=== PATIENT | female | born 1940 | race Caucasian/White ===

== ENCOUNTER → 2018-11-03 | Outpatient (CLI) | payer MEDICARE ==
[2018-11-03 11:30] LABS: HCT 40.1 % (34.0-46.0); HGB 13.2 gm/dL (11.4-16.0); MCH 29.8 pg (25.0-35.0); MCHC 32.9 g/dL (31.0-37.0); MCV 90.5 fL (80.0-100.0); Platelet Count 254 k/uL (150-450); RBC 4.43 m/uL (3.80-5.40); RDW 12.8 % (11.5-15.5)
[2018-11-03 11:42] LABS: Albumin 4.3 g/dL (3.5-5.0); Calcium 9.9 mg/dL (8.4-10.2); Potassium 3.9 mmol/L (3.5-5.1); Total Bilirubin 0.6 mg/dL (0.2-1.3); Total Protein 7.6 g/dL (6.3-8.2)
== END | disposition home or self-care (01) ==
LOC: LABPAT 11:03
PROVIDERS: ATTEND Surgery Plastic and Reconstructive Surgery
DX: Z01.812 Encounter for preprocedural laboratory examination (principal)
CPT/HCPCS: 36415; 80053; 85027

== ENCOUNTER 2018-11-09 10:56 | Inpatient (IN) | payer MEDICARE ==
--- NOTE | 2018-11-09 10:15 | P.GSHP ---
History of Present Illness H&P Date: 11/09/18 CHIEF COMPLAINT: Diverticulitis HISTORY OF PRESENT ILLNESS: The patient is a 78-year-old female who presents with history of diverticulitis. Lower endoscopy was offered for further evaluation and management. PAST MEDICAL HISTORY: Please see list. PAST SURGICAL HISTORY: Please see list. MEDICATIONS: Please see list. ALLERGIES: Please see list. SOCIAL HISTORY: No illicit drug use FAMILY HISTORY: No reports of Crohn disease or ulcerative colitis. REVIEW OF ORGAN SYSTEMS: CONSTITUTIONAL: No reports of fevers or chills. PHYSICAL EXAM: VITAL SIGNS: Stable GENERAL: Well-developed pleasant in no acute distress. HEENT: No scleral icterus. Extraocular movements grossly intact. Moist buccal mucosa. NECK: Supple without lymphadenopathy. CHEST: Unlabored respirations. Equal bilateral excursions. CARDIOVASCULAR: Regular rate and rhythm. Distal 2+ pulses. ABDOMEN: Soft, nontender, nondistended. MUSCULOSKELETAL: No clubbing, cyanosis, or edema. ASSESSMENT: 1. Diverticulitis PLAN: 1. Recommend proceeding with a lower endoscopy Past Medical History Past Medical History: Diabetes Mellitus, Eye Disorder, Hyperlipidemia, Hypertension, Musculoskeletal Disorder, Osteoarthritis (OA), Renal Disease, Skin Disorder, Thyroid Disorder Additional Past Medical History / Comment(s): On Insulin Pump. Macular Degeneration, Sl vertigo. Osteoporosis; collapsing Rt ankle r/t tendonitis. Seasonal Allergies W/ Sinus Problems - worse this year. "In Kidney Failure, functioning at 20%." Eczema. Varicose Veins. History of Any Multi-Drug Resistant Organisms: None Reported Past Surgical History: Appendectomy, Cholecystectomy, Heart Catheterization, Tubal Ligation Additional Past Surgical History / Comment(s): Luca cataract removal with implants. Exc Uterine Cyst. Colonoscopy. Past Anesthesia/Blood Transfusion Reactions: No Reported Reaction Smoking Status: Former smoker - Past Family History Father Brother(s) Family Medical History: Cancer Additional Family Medical History / Comment(s): Brother - kidney, hx Agent Sunburst exposure Medications and Allergies Home Medications Medication Instructions Recorded Confirmed Type Atenolol [Tenormin] 25 mg PO DAILY 05/27/14 11/02/18 History INSULIN ASPART (NovoLOG) [NovoLOG] 0 unit SQ CONTINUOUS 05/27/14 11/02/18 History Levothyroxine Sodium [Synthroid] 100 mcg PO DAILY 05/27/14 11/02/18 History Losartan-Hctz 50-12.5 mg [Hyzaar 1 each PO DAILY 05/27/14 11/02/18 History 50-12.5] Multivitamins, Thera [Multivitamin] 1 tab PO DAILY 05/27/14 11/02/18 History Raloxifene [Evista] 60 mg PO DAILY 05/27/14 11/02/18 History Calcium Carbonate/Vitamin D3 1 each PO DAILY 11/02/18 11/02/18 History [Calcium 600-Vit D3 400 Tablet] Cbd Oil 1 drop PO HS 11/02/18 11/02/18 History Cholecalciferol [Vitamin D3 (25 3,000 unit PO DAILY 11/02/18 11/02/18 History Mcg = 1000 Iu)] Loratadine [Claritin] 10 mg PO HS 11/02/18 11/02/18 History Pravastatin Sodium [Pravachol] 20 mg PO HS 11/02/18 11/02/18 History Vits A,C,E/Lutein/Minerals 1 each PO DAILY 11/02/18 11/02/18 History [Ocuvite with Lutein Tablet] Allergies Allergy/AdvReac Type Severity Reaction Status Date / Time latex Allergy blistering Verified 11/02/18 12:49 Penicillins Allergy Swelling Verified 11/02/18 12:49 Sulfa (Sulfonamide Allergy Itching Verified 11/02/18 12:49 Antibiotics) Tetanus Vaccines and Toxoid Allergy Unknown Verified 11/02/18 12:49 [Tetanus Vaccines & Toxoid] Childhood NSAIDS (Non-Steroidal AdvReac AVOIDS D/T Verified 11/02/18 14:14 Anti-Inflamma KIDNEY FAILURE
[2018-11-09 11:27] LABS: Glucose,Whole Blood 147 mg/dL (75-99)
[2018-11-09] MEDS: LACTATED RINGERS 1,000 ML IV SCH (11:28)
[2018-11-09] MEDS ORDERED: LIDOCAINE 1% 20 ML VIAL (10MG/ML) FOR IV START SQ ONE (11:29)
[2018-11-09] MEDS ORDERED: ATENOLOL 25 MG TAB PO STA (11:36)
[2018-11-09] MEDS ORDERED: PROPOFOL 10 MG/ML 20 ML VIAL IV ONE (11:40)
[2018-11-09] MEDS ORDERED: LIDOCAINE 1% INJ 10MG/ML (20 ML MDV) ONE (11:40)
--- NOTE | 2018-11-09 12:02 | P.HPADDEND ---
H&P Addendum H&P Addendum Date: 11/09/18 Patient presented with history of diverticulitis. She had prior history of stricture of the sigmoid colon. Attempted colonoscopy now confirms large bowel obstruction which is now severe sigmoid obstruction at 20 cm from the anal verge. Recommend proceeding with sigmoid colectomy. Patient will be admitted for robotic sigmoid colectomy secondary to complicated diverticulitis.
[2018-11-09] MEDS ORDERED: Antibiotics per Pharmacy 1 EACH MISC MISCELLANE PRN (12:06)
--- NOTE | 2018-11-09 12:06 | P.PCN ---
Date of Procedure: 11/09/18 Description of Procedure: PREOPERATIVE DIAGNOSIS: Sigmoid diverticulitis POSTOPERATIVE DIAGNOSIS: Sigmoid diverticulitis with large bowel obstruction Sigmoid stricture OPERATION: Colonoscopy to the sigmoid colon converted to flexible sigmoidoscopy SURGEON: Arina Alonzo MD. ANESTHESIA: MAC. INDICATIONS: The patient is a 78-year-old female who presented with history of diverticulitis. She presents for further diagnostic assessment. Benefits and risks were described and informed consent was obtained. DESCRIPTION OF PROCEDURE: The patient had undergone Suprep. She had been brought into the operating room and laid in the left lateral decubitus position. After adequate intravenous sedation, the rectum was examined with 2% lidocaine jelly. External hemorrhoids were encountered. The rectal tone was within normal limits. No lesions were palpated in the rectal vault. An Olympus colonoscope was advanced along the rectum to sigmoid colon where a tight sigmoid stricture was found at 20 cm from the anal verge. The scope was passed to 20 cm from the anal verge. No evidence of polyps were identified at the sigmoid colon. As the patient posed high risk for perforation with persistence of the procedure, the procedure was discontinued. The colon was desufflated. The patient had tolerated the procedure well. Withdrawal time was over 6 minutes. FINDINGS: [place] preparation quality scale 2 (1-5) Sigmoid colon stricture at 20 cm from the anal verge External prolapsed hemorrhoids. Scope advanced to sigmoid colon at 20 cm. No arteriovenous malformations at sigmoid colon No adenomatous polyps at sigmoid colon No focal colitis at sigmoid colon RECOMMENDATIONS: She has symptomatic large bowel obstruction of sigmoidal stricture from diverticular disease, recommend sigmoid resection
[2018-11-09] MEDS ORDERED: SODIUM CHLORIDE 0.9% 1,000 ML IV SCH (12:15)
[2018-11-09 12:29] LABS: Glucose,Whole Blood 151 mg/dL (75-99)
[2018-11-09] MEDS ORDERED: LOSARTAN-HCTZ 50-12.5 MG 1 EACH TAB PO SCH (12:45)
[2018-11-09] MEDS: metroNIDAZOLE 500 MG TAB PO SCH ×3 (13:09→23:07)
[2018-11-09] MEDS: NEOMYCIN 500 MG TAB PO SCH ×3 (13:09→23:07)
[2018-11-09 13:11] LABS: Calcium 9.6 mg/dL (8.4-10.2); Potassium 2.9 mmol/L (3.5-5.1); Total Bilirubin 0.5 mg/dL (0.2-1.3); Total Protein 6.8 g/dL (6.3-8.2)
[2018-11-09 13:21] LABS: Basophils % (A) 1 %; Eosinophils # (A) 0.1 k/uL (0-0.7); Eosinophils % (A) 2 %; HCT 36.3 % (34.0-46.0); HGB 12.4 gm/dL (11.4-16.0); Lymphocytes # (A) 0.8 k/uL (1.0-4.8); Lymphocytes % (A) 18 %; MCH 30.1 pg (25.0-35.0); MCHC 34.1 g/dL (31.0-37.0); MCV 88.3 fL (80.0-100.0); Mean Platelet Volume 10.3; Monocytes # (A) 0.4 k/uL (0-1.0); Monocytes % (A) 8 %; Neutrophils # (A) 3.1 k/uL (1.3-7.7); Neutrophils % (A) 69 %; Platelet Count 194 k/uL (150-450); RBC 4.11 m/uL (3.80-5.40); RDW 12.5 % (11.5-15.5); WBC 4.5 k/uL (3.8-10.6)
[2018-11-09] MEDS: SCOPOLAMINE 1.5MG/72HR PATCH TRANSDERM SCH (13:52)
[2018-11-09] MEDS ORDERED: POLYETHYLENE GLYCOL LYTES SOLN 4,000 ML SOLN.RECON PO ONE (14:00)
[2018-11-09] MEDS ORDERED: POTASSIUM CHLORIDE ER 20 MEQ TAB.ER PO STA (14:06)
[2018-11-09] MEDS ORDERED: SODIUM CHLORIDE 0.9% 1,000 ML IV ONE ×2 (14:07→14:28)
[2018-11-09 16:52] LABS: Glucose,Whole Blood 126 mg/dL (75-99)
[2018-11-09] MEDS: INSULIN ASPART (NovoLOG) 100 UNIT/ML VIAL SQ SCH ×2 (17:03→23:09)
--- NOTE | 2018-11-09 17:14 | P.PN ---
Subjective Progress Note Date: 11/09/18 CHIEF COMPLAINT: History of diverticulosis. HISTORY OF PRESENT ILLNESS: Qian Gaspar is a 78-year-old female who reports severe diverticulosis with recurring symptoms and left lower quadrant abdominal pain. She is also essentially a type 1 diabetic. She also comes in with severe chronic renal insufficiency. She has completed cardiac risk assessment with her provider. She reports doing fairly well however she now has severe constipation and changes of her bowel movements. An attempted colonoscopy was limited to the sigmoid colon as severe diverticulosis including stricture was found hence her admission PAST MEDICAL HISTORY: Please see list. PAST SURGICAL HISTORY: Please see list. MEDICATIONS: Please see list. ALLERGIES: Please see list. SOCIAL HISTORY: No illicit drug use FAMILY HISTORY: No reports of Crohn disease or ulcerative colitis. REVIEW OF ORGAN SYSTEMS: Additionally reports: Endocrine: History of diabetes type 2. Hypothyroidism. GI: Changes in bowel habits with diverticulitis. CONSTITUTIONAL: No fevers or chills. HEENT: Denies any trouble with vision, hearing or nosebleeds. No difficulty swallowing. LYMPHATIC: The patient denies any lumps and bumps around the neck. RESPIRATORY: Denies pneumonia. Denies any troubles with breathing or dyspnea on exertion. CARDIOVASCULAR: Denies any chest pain, palpitations, or recent heart attacks. Has hyperlipidemia. GENITOURINARY: Denies any blood in urine or increased urinary frequency. MUSCULOSKELETAL: Has back pain, stiffness or joint arthritis. NEUROLOGIC: Denies any numbness or tingling along the distal extremities. No seizure disorders or headaches. PSYCHIATRIC: Denies any depression or suicidal ideation. HEMATOLOGIC: Denies any abnormal bleeding or bruising. BREASTS: Denies any breast lumps, pain or nipple discharge. SKIN: No current skin cancer. No rash. PHYSICAL EXAM: VITAL SIGNS: Stable Patient is a 78-year-old female. Abdomen: Without any incisional hernias or scarring above the umbilicus. Soft. Non-tender. Nondistended. CONSTITUTIONAL: Well developed and in no acute distress. Vitals reviewed. EYES: Conjuctivae without sclera icterus. Pupils are equally round and reactive to light. Extraocular movements grossly intact. HEAD, EARS, NOSE, THROAT: Moist buccal mucosa. Head is atraumatic, normocephalic. Hears conversational speech. No nasal drainage. NECK: Supple. No JV distention. No thyroidomegaly. RESPIRATORY: Non-labored respirations and equal bilateral excursions. No gross w heezes. CARDIOVASCULAR: Regular rate and rhythm. Extremities without moderate edema. Palpable 2+ radial pulses. LYMPH: No neck lymphadenopathy. No axillary lymphadenopathy. MUSCULOSKELETAL: Nail and fingers with good capillary refill. SKIN: Warm and well perfused with good skin turgor. NEUROLOGIC: Cranial nerves I through XII grossly intact. Sensation upper and extremities intact. No focal or lateralizing signs. PSYCH: Appropriate affect. Alert and oriented to person, place and time. Displays appropriate insight. ASSESSMENT: 1. History of severe diverticulosis. 2. Type 1 diabetes. 3. Chronic renal insufficiency. PLAN: 1. Benefits and risks of surgical robotic sigmoid resection was reviewed in detail. Robotic-assisted approach was also described. 2. Enhanced colon recovery program. 3. DVT prophylaxis. 4. Antibiotic prophylaxis. 5. Inpatient hospitalization greater than 2 nights. 6. She has completed cardiac risk assessment including cardiac catheterization this year with Dr. Tripathi and she was cleared for surgery. 7. Robotic sigmoid resection was discussed in detail including risk for colostomy bag. 8. She is high for perioperative complications was baseline type 1 diabetes including chronic renal insufficiency ADDENDUM: Electrolytes demonstrate worsening renal function including elevated BUN and severe hypokalemia. We'll treat hypokalemia with oral potassium and switch of IV fluids to normal saline with potassium. Additionally consultation to nephrology for acute on chronic renal failure. Since her prep was incomplete, we'll continue with prep for lower anterior resection, sigmoid colectomy tomorrow. We'll repeat electrolytes in the morning with correction. Objective - Vital Signs Vital signs: Vital Signs Temp 97.2 F L 11/09/18 11:24 Pulse 56 L 11/09/18 13:16 Resp 18 11/09/18 13:16 BP 138/71 11/09/18 13:16 Pulse Ox 97 11/09/18 12:22 Intake & Output 11/08/18 11/09/18 11/09/18 18:59 06:59 18:59 Intake Total 500 Balance 500 Intake: IV 500 Other: # Bowel Movements 4 - Labs CBC & Chem 7: 11/09/18 12:45 11/09/18 12:45 Labs: Abnormal Lab Results - Last 24 Hours (Table) 11/09/18 11/09/18 11/09/18 Range/Units 11:26 12:28 12:45 Lymphocytes # 0.8 L (1.0-4.8) k/uL Sodium (137-145) mmol/L Potassium (3.5-5.1) mmol/L Chloride (98-107) mmol/L BUN (7-17) mg/dL Creatinine (0.52-1.04) mg/dL Glucose (74-99) mg/dL POC Glucose (mg/dL) 147 H 151 H (75-99) mg/dL AST (14-36) U/L 11/09/18 11/09/18 Range/Units 12:45 16:47 Lymphocytes # (1.0-4.8) k/uL Sodium 131 L (137-145) mmol/L Potassium 2.9 L (3.5-5.1) mmol/L Chloride 93 L (98-107) mmol/L BUN 59 H (7-17) mg/dL Creatinine 2.15 H (0.52-1.04) mg/dL Glucose 158 H (74-99) mg/dL POC Glucose (mg/dL) 126 H (75-99) mg/dL AST 41 H (14-36) U/L Assessment and Plan (1) Large bowel obstruction Current Visit: Yes Status: Acute Code(s): K56.609 - UNSP INTESTNL OBST, UNSP TO PARTIAL VERSUS COMPLETE OBST SNOMED Code(s): 447235036 (2) Diverticulitis of sigmoid colon Current Visit: Yes Status: Acute Code(s): K57.32 - DVTRCLI OF LG INT W/O PERFORATION OR ABSCESS W/O BLEEDING SNOMED Code(s): 385898589 (3) Diabetes type 1, controlled Current Visit: Yes Status: Acute Code(s): E10.9 - TYPE 1 DIABETES MELLITUS WITHOUT COMPLICATIONS SNOMED Code(s): 19859067 (4) Diabetic nephropathy associated with type 1 diabetes mellitus Current Visit: Yes Status: Acute Code(s): E10.21 - TYPE 1 DIABETES MELLITUS WITH DIABETIC NEPHROPATHY SNOMED Code(s): 046971808 (5) Stage 4 chronic kidney disease due to diabetes mellitus Current Visit: Yes Status: Acute Code(s): E11.22 - TYPE 2 DIABETES MELLITUS W DIABETIC CHRONIC KIDNEY DISEASE; N18.4 - CHRONIC KIDNEY DISEASE, STAGE 4 (SEVERE) SNOMED Code(s): 517212012 (6) Morbid obesity due to excess calories Current Visit: Yes Status: Acute Code(s): E66.01 - MORBID (SEVERE) OBESITY DUE TO EXCESS CALORIES SNOMED Code(s): 171149136 (7) Hypertensive heart disease Current Visit: Yes Status: Acute Code(s): I11.9 - HYPERTENSIVE HEART DISEASE WITHOUT HEART FAILURE SNOMED Code(s): 84112902 (8) BMI 35.0-35.9,adult Current Visit: Yes Status: Acute Code(s): Z68.35 - BODY MASS INDEX (BMI) 35.0-35.9, ADULT SNOMED Code(s): 154394584 (9) Hypokalemia Current Visit: Yes Status: Acute Code(s): E87.6 - HYPOKALEMIA SNOMED Code(s): 34120547
[2018-11-09] MEDS: 0.9% NACL WITH KCL 40 MEQ/L 1,000 ML IV SCH ×2 (20:18→23:09)
[2018-11-09] MEDS: LORATADINE 10 MG TAB PO SCH (20:19)
[2018-11-09 20:31] LABS: Glucose,Whole Blood 161 mg/dL (75-99)
[2018-11-09] MEDS ORDERED: TEMAZEPAM 15 MG CAP PO ONE (21:00)
[2018-11-10] MEDS: LACTATED RINGERS 1,000 ML IV SCH ×2 (04:50→10:40)
[2018-11-10] MEDS ORDERED: CLINDAMYCIN 900 MG in DEXTROSE 5% IN WATER 50 ML IVPB ONE ×2 (05:00)
[2018-11-10] MEDS ORDERED: GENTAMICIN 380 MG in SODIUM CHLORIDE 0.9% 100 ML IVPB ONE (05:00)
[2018-11-10 06:00] LABS: Glucose,Whole Blood 78 mg/dL (75-99)
[2018-11-10] MEDS: metroNIDAZOLE-NS PMX 500 MG in SALINE 1 100ML.BAG IVPB SCH ×4 (06:00→23:29)
[2018-11-10] MEDS: INSULIN ASPART (NovoLOG) 100 UNIT/ML VIAL SQ SCH (06:03)
[2018-11-10 07:13] LABS: Glucose,Whole Blood 71 mg/dL (75-99)
[2018-11-10] MEDS: ATENOLOL 25 MG TAB PO SCH (07:51)
[2018-11-10 08:26] LABS: Basophils % (A) 0 %; Eosinophils # (A) 0.1 k/uL (0-0.7); Eosinophils % (A) 1 %; HCT 34.3 % (34.0-46.0); HGB 11.6 gm/dL (11.4-16.0); Lymphocytes # (A) 0.7 k/uL (1.0-4.8); Lymphocytes % (A) 12 %; MCH 30.1 pg (25.0-35.0); MCHC 33.9 g/dL (31.0-37.0); Mean Platelet Volume 9.3; Monocytes # (A) 0.4 k/uL (0-1.0); Monocytes % (A) 7 %; Neutrophils # (A) 4.5 k/uL (1.3-7.7); Neutrophils % (A) 78 %; Platelet Count 189 k/uL (150-450); RBC 3.85 m/uL (3.80-5.40); RDW 12.8 % (11.5-15.5); WBC 5.8 k/uL (3.8-10.6)
[2018-11-10 08:40] LABS: Glucose,Whole Blood 86 mg/dL (75-99)
[2018-11-10 08:42] LABS: Albumin 3.4 g/dL (3.5-5.0); Calcium 8.6 mg/dL (8.4-10.2); Magnesium 1.9 mg/dL (1.6-2.3); Phosphorus 2.3 mg/dL (2.5-4.5); Potassium 3.6 mmol/L (3.5-5.1); Total Bilirubin 0.4 mg/dL (0.2-1.3); Total Protein 6.2 g/dL (6.3-8.2)
[2018-11-10] MEDS ORDERED: D5-0.9% NACL WITH KCL 40 MEQ/L 1,000 ML IV SCH (09:00)
[2018-11-10] MEDS ORDERED: ALVIMOPAN 12 MG CAPSULE PO ONE (10:00)
[2018-11-10] MEDS ORDERED: HEPARIN SODIUM,PORCINE 5,000 UNIT/ML 1 ML VIAL SQ ONE (10:00)
[2018-11-10] MEDS ORDERED: ACETAMINOPHEN TAB 500 MG TAB PO ONE (10:00)
[2018-11-10] MEDS ORDERED: IV FLUID CONTINUATION 850 ML IV ONE (10:15)
[2018-11-10] MEDS ORDERED: ATENOLOL 25 MG TAB PO ONE (10:43)
[2018-11-10 10:45] LABS: Glucose,Whole Blood 101 mg/dL (75-99)
[2018-11-10] MEDS ORDERED: MIDAZOLAM (PF) 2 MG/2 ML VIAL IVP ONE (10:55)
[2018-11-10] MEDS ORDERED: fentaNYL (PF) 50 MCG/ML 2 ML AMP IVP ONE (10:55)
--- NOTE | 2018-11-10 10:57 | CONS ---
CONSULTATION REASON FOR CONSULTATION: Advice regarding hypertension, hyperlipidemia, and diabetes mellitus and other medical issues requested by Dr. Alonzo. HISTORY OF PRESENT ILLNESS: This 78-year-old woman with a past medical history of diabetes, hypertension, hyperlipidemia, history of DJD, history of appendectomy, cholecystectomy, history of renal failure being followed by Dr. Sanchez in the outpatient setting was complaining of abdominal pain. Dr. Alonzo evaluated the patient. The patient was diagnosed with severe diverticulosis, previous history of diverticulitis and sigmoid stricture and colonoscopy. The patient is scheduled for sigmoid colectomy. The previous cardiac risk assessment has been done. The patient also had renal failure. The creatinine is stable, it is 2.15 at this time. There is no history of fever, rigors. No history of headache, loss of consciousness, chest pain, palpitations, hematochezia or melena at this time. PAST MEDICAL HISTORY: History of diabetes, hypertension, hyperlipidemia, history of nicotine dependence, history of hypothyroidism, history of insulin pump. MEDICATIONS: The medications prior, home medications are: 1. Ocuvite 1 tablet p.o. daily. 2. Evista 60 mg p.o. daily. 3. Pravachol 20 mg q.h.s. 4. Multivitamins 1 p.o. daily. 5. Hyzaar 1 p.o. daily. 6. Claritin 10 mg q.h.s. 7. Synthroid 100 mcg p.o. daily. 8. Insulin pump. 9. Cholecalciferol 3000 daily. 10.CBD oil 1 p.o. q.h.s. 11.Vitamin D3 one tablet p.o. daily. 12.Tenormin 25 mg p.o. daily. ALLERGIES: Allergies are LATEX, PENICILLIN, SULFA, TETANUS, NSAIDS. FAMILY HISTORY: History of cancer, Agent Canones exposure. SOCIAL HISTORY: Previous history of smoking. Occasional alcohol intake. REVIEW OF SYSTEMS: ENT: No diminished hearing or diminished vision. CARDIOVASCULAR SYSTEM: No angina. RESPIRATORY SYSTEM: No cough, hemoptysis. GI: As mentioned earlier. : As mentioned earlier. NERVOUS SYSTEM: No numbness or weakness. ALLERGY/IMMUNOLOGY: No asthma or hayfever. MUSCULOSKELETAL: As mentioned earlier. HEMATOLOGY/ONCOLOGY: No history anemia. ENDOCRINE: Hypothyroidism and diabetes mellitus. CONSTITUTIONAL: As mentioned earlier. DERMATOLOGY: Negative. RHEUMATOLOGY: Negative. PSYCHIATRIC: As mentioned earlier. PHYSICAL EXAMINATION: Patient is alert, oriented x3. The pulse is 65, blood pressure 165/70, respirations 16, temperature is 97.5, pulse ox 96% on room air. HEENT: Conjunctivae are normal. Oral mucosa moist. NECK is no jugular venous distention. No carotid bruit. No lymph node enlargement. CARDIOVASCULAR: S1, S2 muffled. No S3, no S4. RESPIRATORY: Breath sounds diminished at the bases. No rhonchi, no crackles. ABDOMEN: Soft, nontender. No mass palpable. LEGS: No edema, no swelling. NERVOUS SYSTEM: Higher function as mentioned earlier. Moves all 4 limbs. No focal motor or sensory deficit. LYMPHATICS: No lymphadenopathy of the neck, axillae or groin. JOINTS: No active deforming arthropathy. LABS: Labs are: WBC 4.5, hemoglobin 12.4, sodium 131, potassium 2.9 and creatinine is 2.15. Glucose 158. ASSESSMENT: 1. Sigmoid diverticulosis and sigmoid stricture for sigmoid colectomy. 2. Diabetes mellitus type 2, on insulin pump. 3. Chronic renal failure, possibly diabetic nephropathy. 4. Hypokalemia. 5. Hyponatremia. 6. Hypertension. 7. Hyperlipidemia. 8. History of degenerative joint disease. 9. History of hypothyroidism. 10.Insulin pump. 11.History of macular degeneration. 12.History of cholecystectomy. 13.Remote history of nicotine dependence. 14.Obesity with body mass index of 35.3. 15.FULL CODE. RECOMMENDATIONS AND DISCUSSION: This 78-year-old woman who presented for surgery is currently stable at this time. I recommend monitor sodium and potassium closely, potassium supplementation. Monitor creatinine closely. Otherwise, I would also recommend use either intravenous insulin drip or combination of long-acting and short-acting insulins for diabetes control until the patient is stabilized on a diet post surgery. Otherwise will follow the patient closely and for now, insulin scale may be continued. We will follow the patient closely with you and patient may be asked to follow with Dr. Sanchez closely after discharge. Thank you Dr. Alonzo for letting us participate in the care of this patient. MMODL / IJN: [id number] /
--- NOTE | 2018-11-10 11:05 | P.HPADDEND ---
H&P Addendum H&P Addendum Date: 11/10/18 Potassium corrected. Creatinine improved after IV fluid hydration despite prep. Benefits and risks of surgery also described the possibility of colostomy creation. Patient wished to proceed with surgery.
[2018-11-10] MEDS ORDERED: MIDAZOLAM 2 MG/2 ML VIAL ONE (11:43)
[2018-11-10] MEDS ORDERED: PROPOFOL 10 MG/ML 20 ML VIAL IV ONE (11:43)
[2018-11-10] MEDS ORDERED: ROCURONIUM BROMIDE 10 MG/ML 10 ML VIAL IV ONE (11:43)
[2018-11-10] MEDS ORDERED: LIDOCAINE 1% INJ 10MG/ML (20 ML MDV) ONE (11:43)
[2018-11-10] MEDS ORDERED: HEPARIN SODIUM,PORCINE 5,000 UNIT/ML 1 ML VIAL ONE (11:43)
[2018-11-10] MEDS ORDERED: fentaNYL (PF) 50 MCG/ML 2 ML AMP ONE (11:43)
[2018-11-10] MEDS ORDERED: PHENYLEPHRINE-0.9% NACL SYG 1 MG/10 ML SYRINGE ONE (11:43)
[2018-11-10] MEDS ORDERED: ONDANSETRON 4 MG/2 ML VIAL ONE (11:43)
[2018-11-10] MEDS ORDERED: NEOSTIGMINE 1 MG/ML 10 ML VIAL ONE (11:43)
[2018-11-10] MEDS ORDERED: GLYCOPYRROLATE 0.2 MG/ML 2 ML VIAL ONE (11:43)
[2018-11-10] MEDS ORDERED: INSULIN REGULAR 100 UNIT in SODIUM CHLORIDE 0.9% 100 ML IV SCH (12:00)
[2018-11-10] MEDS ORDERED: NALOXONE 0.4 MG/ML 1 ML VIAL IV PRN (12:24)
[2018-11-10] MEDS ORDERED: BUPIVACAIN-EPI 0.25%-1:200,000 30 ML VIAL SQ ONE (12:33)
[2018-11-10 13:24] LABS: Glucose,Whole Blood 160 mg/dL (75-99)
[2018-11-10 14:27] LABS: Glucose,Whole Blood 203 mg/dL (75-99)
[2018-11-10] MEDS ORDERED: LACTATED RINGERS 1,000 ML IV ONE (14:58)
[2018-11-10 15:32] LABS: Glucose,Whole Blood 194 mg/dL (75-99)
[2018-11-10 16:44] LABS: Glucose,Whole Blood 198 mg/dL (75-99)
--- NOTE | 2018-11-10 17:05 | P.OP ---
Date of Procedure: 11/10/18 Preoperative Diagnosis: Large bowel obstruction, sigmoid diverticulitis, sigmoid stricture, type 1 diabetes, chronic renal insufficiency stage III, hypertensive heart disease, morbid obesity BMI 35.3 Postoperative Diagnosis: Same Procedure(s) Performed: Robotic low anterior resection, colonoscopy Anesthesia: GETA, epidural Surgeon: Arina Alonzo Estimated Blood Loss (ml): 30 Pathology: other (Sigmoid colon) Condition: stable Disposition: floor Operative Findings: 1. Highly redundant sigmoid colon 2. Colon stricture at 20 cm from the anal verge resected for low anterior resection 3. Redundant sigmoid colon mesentery 4. EEA anastomosis end-to-end 25 mm 5. Staple loads 6: 60 mm x 2 black loads, 60 mm 4 Green loads 6. Negative leak test 7. Intraoperative films also reviewed in clinic and findings. 8. Resection of 25 cm or 11 inches of sigmoid colon
--- NOTE | 2018-11-10 17:07 | P.PN ---
Progress Note - Text Progress Note Date: 11/10/18 Discussed with patient and family that she is high risk with type I diabetes type 2, hypertensive heart disease, chronic renal insufficiency stage III, morbid obesity BMI 35.3. Anticipated hospitalization at least 3-5 days. Close monitoring of renal function including continuing antibiotics for contaminated case were reviewed.
[2018-11-10] MEDS ORDERED: SODIUM CHLORIDE 0.9% 1,000 ML IV SCH (17:15)
[2018-11-10 17:34] LABS: Glucose,Whole Blood 204 mg/dL (75-99)
[2018-11-10 18:37] LABS: Glucose,Whole Blood 203 mg/dL (75-99)
[2018-11-10] MEDS: CLINDAMYCIN 600 MG in DEXTROSE 5% IN WATER 50 ML IVPB SCH ×2 (19:32)
[2018-11-10] MEDS: HEPARIN SODIUM,PORCINE 5,000 UNIT/ML 1 ML VIAL SQ SCH (20:08)
[2018-11-10] MEDS: LORATADINE 10 MG TAB PO SCH (20:08)
[2018-11-10] MEDS: 0.9% NACL WITH KCL 40 MEQ/L 1,000 ML IV SCH (20:11)
[2018-11-10 20:36] LABS: Glucose,Whole Blood 163 mg/dL (75-99)
[2018-11-10 22:40] LABS: Glucose,Whole Blood 131 mg/dL (75-99)
[2018-11-11 00:44] LABS: Glucose,Whole Blood 112 mg/dL (75-99)
[2018-11-11] MEDS: CLINDAMYCIN 600 MG in DEXTROSE 5% IN WATER 50 ML IVPB SCH ×6 (01:35→17:42)
[2018-11-11 01:40] LABS: Glucose,Whole Blood 133 mg/dL (75-99)
[2018-11-11] MEDS: 0.9% NACL WITH KCL 40 MEQ/L 1,000 ML IV SCH (02:20)
[2018-11-11] MEDS: LACTATED RINGERS 1,000 ML IV SCH (02:21)
[2018-11-11 02:47] LABS: Glucose,Whole Blood 130 mg/dL (75-99)
[2018-11-11 04:27] LABS: Glucose,Whole Blood 149 mg/dL (75-99)
[2018-11-11] MEDS: metroNIDAZOLE-NS PMX 500 MG in SALINE 1 100ML.BAG IVPB SCH ×4 (05:23→23:00)
[2018-11-11 06:28] LABS: Glucose,Whole Blood 127 mg/dL (75-99)
[2018-11-11 07:51] LABS: Glucose,Whole Blood 117 mg/dL (75-99)
[2018-11-11 08:13] LABS: Basophils % (A) 0 %; Eosinophils # (A) 0.1 k/uL (0-0.7); Eosinophils % (A) 1 %; HCT 30.5 % (34.0-46.0); HGB 10.3 gm/dL (11.4-16.0); Lymphocytes # (A) 0.6 k/uL (1.0-4.8); Lymphocytes % (A) 8 %; MCH 30.1 pg (25.0-35.0); MCHC 33.8 g/dL (31.0-37.0); Mean Platelet Volume 11.5; Monocytes # (A) 0.5 k/uL (0-1.0); Monocytes % (A) 6 %; Neutrophils # (A) 7.1 k/uL (1.3-7.7); Neutrophils % (A) 85 %; Platelet Count 198 k/uL (150-450); RBC 3.42 m/uL (3.80-5.40); RDW 13.7 % (11.5-15.5); WBC 8.3 k/uL (3.8-10.6)
[2018-11-11 08:47] LABS: Calcium 8.2 mg/dL (8.4-10.2); Potassium 3.8 mmol/L (3.5-5.1)
[2018-11-11 09:03] LABS: Glucose,Whole Blood 173 mg/dL (75-99)
[2018-11-11] MEDS ORDERED: POTASSIUM CHLORIDE ER 20 MEQ TAB.ER PO STA (09:21)
--- NOTE | 2018-11-11 09:22 | P.NPCON ---
History of Present Illness - Reason for Consult acute renal failure, chronic renal failure - History of Present Illness Reason for consultation: Acute kidney injury on chronic kidney disease History of present illness: Patient is a 78-year-old female seen in renal consultation for acute kidney injury on chronic kidney disease. Patient has chronic kidney disease stage III and follows with a air brake worker out of [place]. Patient states she had developed an infection of her gallbladder and kidneys in the and her kidneys have been weak since then. Additionally she's been a diabetic for several years. Patient presented to the hospital with abdominal discomfort along with diarrhea. She was noted to have large bowel obstruction and sigmoid diverticulitis. She underwent partial resection of the sigmoid colon on November 10. She is currently on a clear liquid diet. She is maintained on IV fluids. Denies use of nonsteroidals. Hemodynamically stable. She is afebrile. Denies any significant pain. No active complaints at this time. Vital signs are stable. General: The patient appeared well nourished and normally developed. HEENT: Head exam is unremarkable. Neck is without jugular venous distension. LUNGS: Lungs are clear to auscultation and percussion. Breath sounds decreased. HEART: Rate and Rhythm are regular. First and second heart sounds normal. No murmurs, rubs or gallops. ABDOMEN: Abdominal exam reveals normal bowel sounds. Non-tender and non- distended. No evidence of peritonitis. EXTREMITITES: No clubbing, cyanosis, or edema. Past Medical History Past Medical History: Diabetes Mellitus, Eye Disorder, Hyperlipidemia, Hypertens ion, Musculoskeletal Disorder, Osteoarthritis (OA), Renal Disease, Skin Disorder, Thyroid Disorder Additional Past Medical History / Comment(s): On Insulin Pump. Macular Dege neration, Sl vertigo. Osteoporosis; collapsing Rt ankle r/t tendonitis. Seasonal Allergies W/ Sinus Problems - worse this year. "In Kidney Failure, functioning at 20%." Eczema. Varicose Veins. History of Any Multi-Drug Resistant Organisms: None Reported Past Surgical History: Appendectomy, Cholecystectomy, Heart Catheterization, Tubal Ligation Additional Past Surgical History / Comment(s): Luca cataract removal with i mplants. Exc Uterine Cyst. Colonoscopy. Past Anesthesia/Blood Transfusion Reactions: No Reported Reaction Past Psychological History: No Psychological Hx Reported Smoking Status: Former smoker Past Alcohol Use History: Occasional Additional Past Alcohol Use History / Comment(s): Smoked 1 year at age 22 Past Drug Use History: None Reported - Past Family History Father Brother(s) Family Medical History: Cancer Additional Family Medical History / Comment(s): Brother - kidney, hx Agent [place] exposure Medications and Allergies Home Medications Medication Instructions Recorded Confirmed Type Atenolol [Tenormin] 25 mg PO DAILY 05/27/14 11/09/18 History INSULIN ASPART (NovoLOG) [NovoLOG] 0.1 unit SQ CONTINUOUS 05/27/14 11/09/18 History Levothyroxine Sodium [Synthroid] 100 mcg PO DAILY 05/27/14 11/09/18 History Losartan-Hctz 50-12.5 mg [Hyzaar 1 tab PO DAILY 05/27/14 11/09/18 History 50-12.5] Multivitamins, Thera [Multivitamin] 1 tab PO DAILY 05/27/14 11/09/18 History Raloxifene [Evista] 60 mg PO DAILY 05/27/14 11/09/18 History Calcium Carbonate/Vitamin D3 1 tab PO DAILY 11/02/18 11/09/18 History [Calcium 600-Vit D3 400 Tablet] Cbd Oil 1 drop PO HS 11/02/18 11/09/18 History Cholecalciferol [Vitamin D3 (25 3,000 unit PO DAILY 11/02/18 11/09/18 History Mcg = 1000 Iu)] Loratadine [Claritin] 10 mg PO HS 11/02/18 11/09/18 History Pravastatin Sodium [Pravachol] 20 mg PO HS 11/02/18 11/09/18 History Vits A,C,E/Lutein/Minerals 1 tab PO DAILY 11/02/18 11/09/18 History [Ocuvite with Lutein Tablet] Allergies Allergy/AdvReac Type Severity Reaction Status Date / Time latex Allergy blistering Verified 11/09/18 14:49 Penicillins Allergy Swelling Verified 11/09/18 14:49 Sulfa (Sulfonamide Allergy Itching Verified 11/09/18 14:49 Antibiotics) Tetanus Vaccines and Toxoid Allergy Unknown Verified 11/09/18 14:49 [Tetanus Vaccines & Toxoid] Childhood NSAIDS (Non-Steroidal AdvReac AVOIDS D/T Verified 11/09/18 14:49 Anti-Inflamma KIDNEY FAILURE Physical Exam Vitals: Vital Signs Temp Pulse Pulse Pulse Resp BP Pulse Ox 11/11/18 07:00 99.0 F 63 15 108/66 95 11/11/18 01:59 97.8 F 67 18 100/54 97 11/10/18 20:25 74 121/64 97 11/10/18 20:10 68 138/75 97 11/10/18 20:07 96 11/10/18 19:55 64 123/73 94 L 11/10/18 19:40 98.1 F 86 127/73 95 11/10/18 19:25 64 128/76 93 L 11/10/18 19:10 62 128/74 93 L 11/10/18 18:55 61 128/72 91 L 11/10/18 18:40 97.7 F 63 136/75 96 11/10/18 18:30 97.7 F 64 16 132/76 97 11/10/18 18:25 64 132/76 11/10/18 18:05 64 16 130/58 98 11/10/18 17:50 59 L 16 119/60 97 11/10/18 17:35 65 16 131/62 100 11/10/18 17:20 68 16 119/61 100 11/10/18 17:05 97.7 F 78 16 143/56 100 11/10/18 11:45 76 18 164/71 94 L 11/10/18 11:00 70 18 150/72 94 L 11/10/18 10:13 96.8 F L 66 18 133/63 98 Intake and Output 11/10/18 11/11/18 11/11/18 22:59 06:59 14:59 Intake Total 66.530 7.474 180 Output Total 385 400 Balance -318.470 -392.526 180 Intake: IV 50 Intake, IV Titration 16.530 7.474 0 Amount Insulin Regular 100 unit 16.530 7.474 0 In Sodium Chloride 0.9% 100 ml @ 1 mls/hr IV . Q24H [facility] Rx#:[id number] Oral 180 Output: Urine 355 400 Estimated Blood Loss 30 Other: Voiding Method Indwelling Catheter Results - Lab Results Most recent lab results Calcium 8.2 mg/dL (8.4-10.2) L 11/11/18 06:54 Phosphorus 2.3 mg/dL (2.5-4.5) L 11/10/18 08:18 Magnesium 1.9 mg/dL (1.6-2.3) 11/10/18 08:18 11/11/18 06:54 11/11/18 06:54 Assessment and Plan Plan: Assessment: 1. Acute kidney injury mostly prerenal secondary to intravascular volume depletion from diarrhea and diuretics. Creatinine was 2.15 on admission and is down to 1.57 today. 2. Chronic kidney disease stage III secondary to nonrecovered ATN and also likely underlying diabetic kidney disease. Patient follows with air brake worker out of [place]. 3. Insulin-dependent diabetes mellitus. 4. Large bowel obstruction and sigmoid diverticulitis status post partial sigmoid resection on November 10. 5. Hypertension with chronic kidney disease. Controlled. 6. Hypokalemia due to poor oral intake. Improved. Plan: I will change IV fluids to normal saline at 75 mL an hour. Replace potassium. 20 mg once today. Repeat electrolytes, including magnesium level, in the morning. Check urinalysis. Avoid nephrotoxins. Diet to be advanced per surgical recommendations. Thank you for the consultation. I'll continue to follow patient with you during her hospital stay.
--- NOTE | 2018-11-11 09:39 | P.PN ---
Subjective Progress Note Date: 11/11/18 Principal diagnosis: Post low anterior resection Patient doing well today. Pain is well-controlled. T-max 99. Labs reviewed. No flatus. Objective - Vital Signs Vital signs: Vital Signs Temp 99.0 F 11/11/18 07:00 Pulse 63 11/11/18 07:00 Resp 15 11/11/18 07:00 BP 108/66 11/11/18 07:00 Pulse Ox 95 11/11/18 07:00 Intake & Output 11/10/18 11/11/18 11/11/18 18:59 06:59 18:59 Intake Total 2500 24.004 180 Output Total 385 400 Balance 2115 -375.996 180 Intake: IV 2500 Intake, IV Titration 24.004 0 Amount Insulin Regular 100 unit 24.004 0 In Sodium Chloride 0.9% 100 ml @ 1 mls/hr IV . Q24H [facility] Rx#:[id number] Oral 180 Output: Urine 355 400 Estimated Blood Loss 30 Other: Voiding Method Indwelling Catheter - Exam Abdomen: Soft, nondistended, incisions clean and dry, left upper quadrant dressing intact - Labs CBC & Chem 7: 11/11/18 06:54 11/11/18 06:54 Labs: Abnormal Lab Results - Last 24 Hours (Table) 11/10/18 11/10/18 11/10/18 Range/Units 10:44 13:21 14:25 RBC (3.80-5.40) m/uL Hgb (11.4-16.0) gm/dL Hct (34.0-46.0) % Lymphocytes # (1.0-4.8) k/uL Chloride (98-107) mmol/L BUN (7-17) mg/dL Creatinine (0.52-1.04) mg/dL Glucose (74-99) mg/dL POC Glucose (mg/dL) 101 H 160 H 203 H (75-99) mg/dL Calcium (8.4-10.2) mg/dL 11/10/18 11/10/18 11/10/18 Range/Units 15:29 16:31 17:27 RBC (3.80-5.40) m/uL Hgb (11.4-16.0) gm/dL Hct (34.0-46.0) % Lymphocytes # (1.0-4.8) k/uL Chloride (98-107) mmol/L BUN (7-17) mg/dL Creatinine (0.52-1.04) mg/dL Glucose (74-99) mg/dL POC Glucose (mg/dL) 194 H 198 H 204 H (75-99) mg/dL Calcium (8.4-10.2) mg/dL 11/10/18 11/10/18 11/10/18 Range/Units 18:32 20:34 22:38 RBC (3.80-5.40) m/uL Hgb (11.4-16.0) gm/dL Hct (34.0-46.0) % Lymphocytes # (1.0-4.8) k/uL Chloride (98-107) mmol/L BUN (7-17) mg/dL Creatinine (0.52-1.04) mg/dL Glucose (74-99) mg/dL POC Glucose (mg/dL) 203 H 163 H 131 H (75-99) mg/dL Calcium (8.4-10.2) mg/dL 11/11/18 11/11/18 11/11/18 Range/Units 00:43 01:38 02:46 RBC (3.80-5.40) m/uL Hgb (11.4-16.0) gm/dL Hct (34.0-46.0) % Lymphocytes # (1.0-4.8) k/uL Chloride (98-107) mmol/L BUN (7-17) mg/dL Creatinine (0.52-1.04) mg/dL Glucose (74-99) mg/dL POC Glucose (mg/dL) 112 H 133 H 130 H (75-99) mg/dL Calcium (8.4-10.2) mg/dL 11/11/18 11/11/18 11/11/18 Range/Units 04:25 06:17 06:54 RBC 3.42 L (3.80-5.40) m/uL Hgb 10.3 L (11.4-16.0) gm/dL Hct 30.5 L (34.0-46.0) % Lymphocytes # 0.6 L (1.0-4.8) k/uL Chloride (98-107) mmol/L BUN (7-17) mg/dL Creatinine (0.52-1.04) mg/dL Glucose (74-99) mg/dL POC Glucose (mg/dL) 149 H 127 H (75-99) mg/dL Calcium (8.4-10.2) mg/dL 11/11/18 11/11/18 11/11/18 Range/Units 06:54 07:40 08:51 RBC (3.80-5.40) m/uL Hgb (11.4-16.0) gm/dL Hct (34.0-46.0) % Lymphocytes # (1.0-4.8) k/uL Chloride 109 H (98-107) mmol/L BUN 21 H (7-17) mg/dL Creatinine 1.57 H (0.52-1.04) mg/dL Glucose 110 H (74-99) mg/dL POC Glucose (mg/dL) 117 H 173 H (75-99) mg/dL Calcium 8.2 L (8.4-10.2) mg/dL Assessment and Plan (1) Diverticulitis of sigmoid colon Narrative/Plan: Patient doing well after low anterior resection done laparoscopically for diverticulitis. Continue clear liquids. Ambulate. Recheck labs tomorrow. Current Visit: Yes Status: Acute Code(s): K57.32 - DVTRCLI OF LG INT W/O PERFORATION OR ABSCESS W/O BLEEDING SNOMED Code(s): 133854342
[2018-11-11] MEDS: ALVIMOPAN 12 MG CAPSULE PO SCH ×2 (10:16→20:54)
[2018-11-11] MEDS: ATENOLOL 25 MG TAB PO SCH (10:16)
[2018-11-11] MEDS: HEPARIN SODIUM,PORCINE 5,000 UNIT/ML 1 ML VIAL SQ SCH ×2 (10:18→20:55)
[2018-11-11] MEDS: SODIUM CHLORIDE 0.9% 1,000 ML IV SCH ×2 (10:18→23:11)
[2018-11-11] MEDS: LEVOTHYROXINE 100 MCG TAB PO SCH (10:43)
--- NOTE | 2018-11-11 10:51 | P.PN ---
Progress Note - Text Progress Note Date: 11/11/18 POD 1, cath day 2, sigmoid colectomy. Doing well, has not ambulated, arteaga in place per surgery team. Epidural site has dry blood, no active bleeding. Catheter resecured with tape this morning. denies lower ext weakness or parasthesia's. cont catheter at 8cc/hr.
[2018-11-11 10:52] LABS: Appearance,Urine Clear (Clear); Bilirubin,Urine Negative (Negative); Blood,Urine Negative (Negative); Color,Urine Light Red; Glucose,Urine (UA) Negative (Negative); Ketones,Urine 1+ (Negative); Leukocyte Esterase,Urine Small (Negative); Nitrite,Urine Negative (Negative); Protein,Urine Trace (Negative); RBC,Urine 47 /hpf (0-5); Specific Gravity,Urine 1.023 (1.001-1.035); Squamous Epithelial Cell,Urine <1 /hpf (0-4); Urobilinogen,Urine <2.0 mg/dL (<2.0); WBC,Urine 10 /hpf (0-5)
[2018-11-11 11:09] LABS: Glucose,Whole Blood 170 mg/dL (75-99)
[2018-11-11 12:18] LABS: Glucose,Whole Blood 167 mg/dL (75-99)
[2018-11-11] MEDS: ROPIVACAINE 250 MG, HYDROMORPHONE (PF) 5 MG in SODIUM CHLORIDE 0.9% 200 ML EPIDURAL PRN (15:10)
[2018-11-11 16:53] LABS: Glucose,Whole Blood 156 mg/dL (75-99)
--- NOTE | 2018-11-11 17:07 | PN ---
PROGRESS NOTE DATE OF SERVICE: 11/10/2018 This 78-year-old woman was admitted with sigmoid diverticulosis, is slated for surgery today. No chest pain. No palpitations. No fever. EXAM: Alert and oriented x3. The pulse is 65. Blood pressure 128/76, respiration 14, temperature 98.1, pulse ox 97% on room air. HEENT: Conjunctivae normal. NECK: No JVD. CARDIOVASCULAR: S1, S2 muffled. RESPIRATORY: Breath sounds diminished in the bases. No rhonchi. No crackles. ABDOMEN is soft, nontender. LEGS: No edema. No swelling. CENTRAL NERVOUS SYSTEM: No focal deficits. LABS: Reviewed. ASSESSMENT: 1. Sigmoid diverticulosis, small stricture for sigmoid colectomy. 2. Diabetes type 2 on insulin pump. 3. Chronic renal failure with possibly diabetic nephropathy. 4. Hypokalemia. 5. Hyponatremia. 6. Hypertension. 7. Hyperlipidemia. 8. History of degenerative joint disease. 9. History hypothyroidism. 10.Insulin pump. 11.History of macular degeneration. 12.History of cholecystectomy. 13.Remote history of nicotine dependence. 14.Obesity, body mass index of 35.8. 15.FULL CODE. RECOMMENDATIONS AND DISCUSSION: Recommend to continue current medications, symptomatic treatment and continue with insulin drip perioperatively. Closely monitor. Continue the rest of medications. Further recommendations to follow. MMODL / IJN: [id number] /
--- NOTE | 2018-11-11 17:07 | PN ---
PROGRESS NOTE DATE OF SERVICE: 11/11/2018 This 78-year-old woman was admitted with sigmoid diverticulosis, with features of large bowel obstruction and sigmoid stricture and underwent a robotic low anterior resection and colonoscopy. End to end anastomosis done. The insulin drip was initiated but currently the patient is on backup insulin pump at the base level. The patient is on clear liquids. Surgery is following the patient closely. The other creatinine value today is 1.57, which is rather improved from the admission value of 2.15. UA was noted. PAST MEDICAL HISTORY: Reviewed. REVIEW OF SYSTEMS: CARDIOVASCULAR SYSTEM: No angina or palpitations. RESPIRATORY: As mentioned earlier. GASTROINTESTINAL: As mentioned earlier. as mentioned earlier. CENTRAL NERVOUS SYSTEM: No numbness or weakness. CURRENT MEDICATIONS: Reviewed include: 1. Entereg 12 mg p.o. b.i.d. 2. Tenormin 25 mg p.o. daily. 3. Heparin subcu b.i.d. 4. Lactated Ringer. 5. Synthroid. 6. Claritin 10 mg q.h.s. 7. Flagyl 500 mg q.8 p.r.n. 8. Zofran 4 mg q.6h p.r.n. 9. Scopolamine patch. PHYSICAL EXAMINATION: Alert and oriented x3. Pulse 63, blood pressure 112/58, respiration 18, temperature 97.6, pulse ox 94% on room air. HEENT: Conjunctivae normal. Oral mucosa moist. NECK is no jugular venous distention. No lymph node enlargement. Cardiovascular systems: S1, S2 muffled. Respiration: Breath sounds diminished in the bases. A few scattered rhonchi and crackles. ABDOMEN: Soft, status post surgery. LEGS are no edema. CENTRAL NERVOUS SYSTEM: No focal deficits. LABS: WBC 8.2, hemoglobin 10.3, creatinine 1.57. ASSESSMENT: 1. Large bowel obstruction with sigmoid stricture status post robotic low anterior resection and colonoscopy. 2. Diabetes mellitus type 2 on insulin pump. 3. Chronic renal failure, possibly diabetic nephropathy. 4. Hypokalemia. 5. Hyponatremia. 6. Hypertension. 7. Hyperlipidemia. 8. History of degenerative joint disease. 9. History of hypothyroidism. 10.Insulin pump. 11.History of macular degeneration. 12.History of cholecystectomy. 13.Remote history of nicotine dependence. 14.Obesity with body mass index of 35.3. 15.FULL CODE. RECOMMENDATIONS AND DISCUSSION: Recommend to continue current medications, management and symptomatic treatment. The patient is back on pump at this time. Monitor blood sugars closely. Bolus of insulin may be done once the patient is on a p.o. diet. Otherwise, monitor creatinine closely. Repeat labs. DVT prophylaxis. Incentive spirometry. Closely follow with surgery. Further recommendations to follow. MMMASONL / IJN: [id number] /
[2018-11-11 20:10] LABS: Glucose,Whole Blood 160 mg/dL (75-99)
[2018-11-11] MEDS: LORATADINE 10 MG TAB PO SCH (20:54)
[2018-11-11] MEDS: diphenhydrAMINE 50 MG/ML 1 ML VIAL IVP PRN (23:01)
[2018-11-12] MEDS: CLINDAMYCIN 600 MG in DEXTROSE 5% IN WATER 50 ML IVPB SCH ×6 (02:17→17:22)
[2018-11-12] MEDS: LACTATED RINGERS 1,000 ML IV SCH (04:09)
[2018-11-12] MEDS: metroNIDAZOLE-NS PMX 500 MG in SALINE 1 100ML.BAG IVPB SCH ×4 (05:27→23:44)
[2018-11-12] MEDS: LEVOTHYROXINE 100 MCG TAB PO SCH (05:27)
[2018-11-12 07:08] LABS: Glucose,Whole Blood 83 mg/dL (75-99)
[2018-11-12 08:15] LABS: Calcium 8.2 mg/dL (8.4-10.2); Magnesium 1.7 mg/dL (1.6-2.3); Potassium 3.9 mmol/L (3.5-5.1)
[2018-11-12 08:22] LABS: Basophils % (A) 0 %; Eosinophils # (A) 0.2 k/uL (0-0.7); Eosinophils % (A) 3 %; HCT 31.9 % (34.0-46.0); HGB 10.7 gm/dL (11.4-16.0); Lymphocytes # (A) 0.8 k/uL (1.0-4.8); Lymphocytes % (A) 9 %; MCH 30.1 pg (25.0-35.0); MCHC 33.5 g/dL (31.0-37.0); MCV 89.8 fL (80.0-100.0); Mean Platelet Volume 11.6; Monocytes # (A) 0.5 k/uL (0-1.0); Monocytes % (A) 5 %; Neutrophils # (A) 7.3 k/uL (1.3-7.7); Neutrophils % (A) 82 %; Platelet Count 195 k/uL (150-450); RBC 3.55 m/uL (3.80-5.40); WBC 8.9 k/uL (3.8-10.6)
[2018-11-12] MEDS: ONDANSETRON 4 MG/2 ML VIAL IVP PRN (08:49)
[2018-11-12] MEDS: ATENOLOL 25 MG TAB PO SCH (09:02)
[2018-11-12] MEDS: HEPARIN SODIUM,PORCINE 5,000 UNIT/ML 1 ML VIAL SQ SCH ×2 (09:02→20:12)
[2018-11-12] MEDS: ALVIMOPAN 12 MG CAPSULE PO SCH ×2 (09:02→20:12)
--- NOTE | 2018-11-12 09:30 | P.PN ---
Progress Note - Text Progress Note Date: 11/12/18 POD 2, cath day 3, sigmoid colectomy. Qian is doing very well today. She reports her pain is under very good control. She denies any lower extremity weakness or numbness or tingling. She was able to ambulate yesterday. She has not ambulated yet today. She still has a Jackson catheter per the surgical team. She denies any paresthesias in her lower extremities. Her epidural running at 8 mL per hour. This site is clean and dry and has not changed since yesterday. We will discontinue the epidural on Tuesday
--- NOTE | 2018-11-12 10:28 | P.PN ---
Subjective Progress Note Date: 11/12/18 Principal diagnosis: Post low anterior resection Patient complaining of mild nausea today. No flatus or bowel movement thus far. T-max 99.2. White blood cell count normal. Objective - Vital Signs Vital signs: Vital Signs Temp 97.5 F L 11/12/18 07:00 Pulse 78 11/12/18 07:00 Resp 16 11/12/18 07:00 BP 144/79 11/12/18 07:00 Pulse Ox 94 L 11/12/18 07:00 Intake & Output 11/11/18 11/12/18 11/12/18 18:59 06:59 18:59 Intake Total 304.377 Output Total 250 Balance 54.377 Intake: Intake, IV Titration 4.377 Amount Insulin Regular 100 unit 4.377 In Sodium Chloride 0.9% 100 ml @ 1 mls/hr IV . Q24H [facility] Rx#:[id number] Oral 300 Output: Urine 250 Other: Voiding Method Indwelling Catheter Indwelling Catheter - Exam Abdomen: Soft, mild distention, incisions clean and dry, minimal tenderness - Labs CBC & Chem 7: 11/12/18 07:17 11/12/18 07:17 Labs: Abnormal Lab Results - Last 24 Hours (Table) 11/11/18 11/11/18 11/11/18 Range/Units 10:00 10:39 12:06 RBC (3.80-5.40) m/uL Hgb (11.4-16.0) gm/dL Hct (34.0-46.0) % Lymphocytes # (1.0-4.8) k/uL Creatinine (0.52-1.04) mg/dL POC Glucose (mg/dL) 170 H 167 H (75-99) mg/dL Calcium (8.4-10.2) mg/dL Urine Protein Trace H (Negative) Urine Ketones 1+ H (Negative) Ur Leukocyte Esterase Small H (Negative) Urine RBC 47 H (0-5) /hpf Urine WBC 10 H (0-5) /hpf 11/11/18 11/11/18 11/12/18 Range/Units 16:51 19:58 07:17 RBC 3.55 L (3.80-5.40) m/uL Hgb 10.7 L (11.4-16.0) gm/dL Hct 31.9 L (34.0-46.0) % Lymphocytes # 0.8 L (1.0-4.8) k/uL Creatinine (0.52-1.04) mg/dL POC Glucose (mg/dL) 156 H 160 H (75-99) mg/dL Calcium (8.4-10.2) mg/dL Urine Protein (Negative) Urine Ketones (Negative) Ur Leukocyte Esterase (Negative) Urine RBC (0-5) /hpf Urine WBC (0-5) /hpf 11/12/18 Range/Units 07:17 RBC (3.80-5.40) m/uL Hgb (11.4-16.0) gm/dL Hct (34.0-46.0) % Lymphocytes # (1.0-4.8) k/uL Creatinine 1.51 H (0.52-1.04) mg/dL POC Glucose (mg/dL) (75-99) mg/dL Calcium 8.2 L (8.4-10.2) mg/dL Urine Protein (Negative) Urine Ketones (Negative) Ur Leukocyte Esterase (Negative) Urine RBC (0-5) /hpf Urine WBC (0-5) /hpf Assessment and Plan (1) Diverticulitis of sigmoid colon Narrative/Plan: Continue clears only. Ambulate. Monitor bowel function. Current Visit: Yes Status: Acute Code(s): K57.32 - DVTRCLI OF LG INT W/O PERFORATION OR ABSCESS W/O BLEEDING SNOMED Code(s): 111914697
--- NOTE | 2018-11-12 10:48 | P.PN ---
Subjective Patient is seen in follow-up for acute kidney injury on chronic kidney disease. Patient has chronic kidney disease stage III and follows with a customer logistics manager out of [place]. Renal function is improved since admission. She is nonoliguric. No vomiting or diarrhea. Currently on clear liquid diet. Vital signs are stable. General: The patient appeared well nourished and normally developed. HEENT: Head exam is unremarkable. Neck is without jugular venous distension. LUNGS: Lungs are clear to auscultation and percussion. Breath sounds decreased. HEART: Rate and Rhythm are regular. First and second heart sounds normal. No murmurs, rubs or gallops. ABDOMEN: Abdominal exam reveals normal bowel sounds. Non-tender and non- distended. No evidence of peritonitis. EXTREMITITES: No clubbing, cyanosis, or edema. Objective - Vital Signs Vital signs: Vital Signs Temp 97.5 F L 11/12/18 07:00 Pulse 78 11/12/18 07:00 Resp 16 11/12/18 07:00 BP 144/79 11/12/18 07:00 Pulse Ox 94 L 11/12/18 07:00 Intake & Output 11/11/18 11/12/18 11/12/18 18:59 06:59 18:59 Intake Total 304.377 Output Total 250 Balance 54.377 Intake: Intake, IV Titration 4.377 Amount Insulin Regular 100 unit 4.377 In Sodium Chloride 0.9% 100 ml @ 1 mls/hr IV . Q24H [facility] Rx#:[id number] Oral 300 Output: Urine 250 Other: Voiding Method Indwelling Catheter Indwelling Catheter - Labs CBC & Chem 7: 11/12/18 07:17 11/12/18 07:17 Labs: Abnormal Lab Results - Last 24 Hours (Table) 11/11/18 11/11/18 11/11/18 Range/Units 10:00 10:39 12:06 RBC (3.80-5.40) m/uL Hgb (11.4-16.0) gm/dL Hct (34.0-46.0) % Lymphocytes # (1.0-4.8) k/uL Creatinine (0.52-1.04) mg/dL POC Glucose (mg/dL) 170 H 167 H (75-99) mg/dL Calcium (8.4-10.2) mg/dL Urine Protein Trace H (Negative) Urine Ketones 1+ H (Negative) Ur Leukocyte Esterase Small H (Negative) Urine RBC 47 H (0-5) /hpf Urine WBC 10 H (0-5) /hpf 11/11/18 11/11/18 11/12/18 Range/Units 16:51 19:58 07:17 RBC 3.55 L (3.80-5.40) m/uL Hgb 10.7 L (11.4-16.0) gm/dL Hct 31.9 L (34.0-46.0) % Lymphocytes # 0.8 L (1.0-4.8) k/uL Creatinine (0.52-1.04) mg/dL POC Glucose (mg/dL) 156 H 160 H (75-99) mg/dL Calcium (8.4-10.2) mg/dL Urine Protein (Negative) Urine Ketones (Negative) Ur Leukocyte Esterase (Negative) Urine RBC (0-5) /hpf Urine WBC (0-5) /hpf 11/12/18 Range/Units 07:17 RBC (3.80-5.40) m/uL Hgb (11.4-16.0) gm/dL Hct (34.0-46.0) % Lymphocytes # (1.0-4.8) k/uL Creatinine 1.51 H (0.52-1.04) mg/dL POC Glucose (mg/dL) (75-99) mg/dL Calcium 8.2 L (8.4-10.2) mg/dL Urine Protein (Negative) Urine Ketones (Negative) Ur Leukocyte Esterase (Negative) Urine RBC (0-5) /hpf Urine WBC (0-5) /hpf Assessment and Plan Plan: Assessment: 1. Acute kidney injury mostly prerenal secondary to intravascular volume depletion from diarrhea and diuretics. Creatinine was 2.15 on admission and is down to 1.51 today. Trace proteinuria noted on UA. 2. Chronic kidney disease stage III secondary to nonrecovered ATN and also likely underlying diabetic kidney disease. Patient follows with customer logistics manager out of [place]. 3. Insulin-dependent diabetes mellitus. 4. Large bowel obstruction and sigmoid diverticulitis status post partial sigmoid resection on November 10. 5. Hypertension with chronic kidney disease. Controlled. 6. Hypokalemia due to poor oral intake. Improved. Plan: Maintain normal saline at 75 mL an hour. Avoid nephrotoxins. Diet to be advanced per surgical recommendations.
[2018-11-12 11:47] LABS: Glucose,Whole Blood 107 mg/dL (75-99)
[2018-11-12] MEDS: SODIUM CHLORIDE 0.9% 1,000 ML IV SCH (14:44)
[2018-11-12] MEDS: SCOPOLAMINE 1.5MG/72HR PATCH TRANSDERM SCH (14:49)
[2018-11-12] MEDS: ROPIVACAINE 250 MG, HYDROMORPHONE (PF) 5 MG in SODIUM CHLORIDE 0.9% 200 ML EPIDURAL PRN (15:14)
[2018-11-12 17:02] LABS: Glucose,Whole Blood 131 mg/dL (75-99)
--- NOTE | 2018-11-12 17:54 | PN ---
PROGRESS NOTE DATE OF SERVICE: 11/12/2018. This 78-year-old woman who was admitted after large bowel obstruction had sigmoid resection. The patient being closely monitored at this time. No chest pain. No palpitations. No fever. EXAM: Alert and oriented x3. Pulse 74, blood pressure 124/70, respirations 17, temperature 98.2, pulse ox 94% on room air. HEENT: Conjunctivae normal. NECK: No jugular venous distention. CARDIOVASCULAR: S1, S2 muffled. RESPIRATORY: Breath sounds diminished in the bases. A few scattered rhonchi. No crackles. ABDOMEN is soft, nontender. Status post surgery. LEGS are no edema. No swelling. CENTRAL NERVOUS SYSTEM: No focal deficits. LABS: WBC 8.2, hemoglobin 10.7, creatinine is 1.51. The previous creatinine 1.57, improved. ASSESSMENT: 1. Large bowel obstruction with sigmoid stricture status post low anterior resection and colonoscopy. 2. Diabetes type 2 on insulin pump. 3. Chronic renal failure, possibly diabetic nephropathy stage III. 4. Hypokalemia. 5. Hyponatremia. 6. Hypertension. 7. Hyperlipidemia. 8. History of degenerative joint disease. 9. History of hypothyroidism. 10.History of insulin pump. 11.History of macular degeneration. 12.History of cholecystectomy. 13.Remote history of nicotine dependence. 14.Obesity with body mass index of 34.3. 15.FULL CODE. RECOMMENDATIONS AND DISCUSSION: Recommend to continue current medication, continue to monitor, symptomatic treatment. Otherwise, at this time, we will continue to monitor. Otherwise, continue the antibiotics. Continue the rest of the medications. Monitor blood sugars closely. Closely follow with surgery. Further recommendations to follow. MMODL / IJN: [id number] /
[2018-11-12] MEDS: LORATADINE 10 MG TAB PO SCH (20:12)
[2018-11-12] MEDS: diphenhydrAMINE 50 MG/ML 1 ML VIAL IVP PRN (20:12)
[2018-11-12 20:18] LABS: Glucose,Whole Blood 163 mg/dL (75-99)
[2018-11-13] MEDS: SODIUM CHLORIDE 0.9% 1,000 ML IV SCH ×3 (01:18→20:25)
[2018-11-13] MEDS: CLINDAMYCIN 600 MG in DEXTROSE 5% IN WATER 50 ML IVPB SCH ×6 (02:02→18:29)
[2018-11-13 02:14] LABS: Glucose,Whole Blood 74 mg/dL (75-99)
[2018-11-13] MEDS: metroNIDAZOLE-NS PMX 500 MG in SALINE 1 100ML.BAG IVPB SCH ×4 (05:30→23:27)
[2018-11-13] MEDS: LEVOTHYROXINE 100 MCG TAB PO SCH (05:30)
[2018-11-13] MEDS: LACTATED RINGERS 1,000 ML IV SCH (05:31)
--- NOTE | 2018-11-13 05:56 | P.PN ---
Progress Note - Text Progress Note Date: 11/13/18 POD 3, cath day 4, sigmoid colectomy. Doing good this morning, still sleeping. Reports pain is well controlled, nausea is better. taking clear liquids, passing flatus. no lower ext weakness, parasthesias noted. will d/c catheter sometime today. hold sub q heparin for 6 hours before pulling, hold next dose for at least 2 hours after pulling the catheter.
[2018-11-13 07:21] LABS: Glucose,Whole Blood 95 mg/dL (75-99)
[2018-11-13 08:30] LABS: Basophils # (A) 0.1 k/uL (0-0.2); Basophils % (A) 1 %; Eosinophils # (A) 0.5 k/uL (0-0.7); Eosinophils % (A) 7 %; HCT 31.5 % (34.0-46.0); HGB 10.6 gm/dL (11.4-16.0); Lymphocytes # (A) 0.7 k/uL (1.0-4.8); Lymphocytes % (A) 9 %; MCH 30.7 pg (25.0-35.0); MCHC 33.6 g/dL (31.0-37.0); MCV 91.3 fL (80.0-100.0); Mean Platelet Volume 10.9; Monocytes # (A) 0.5 k/uL (0-1.0); Monocytes % (A) 6 %; Neutrophils # (A) 6.1 k/uL (1.3-7.7); Neutrophils % (A) 77 %; Platelet Count 187 k/uL (150-450); RBC 3.46 m/uL (3.80-5.40); RDW 13.3 % (11.5-15.5); WBC 7.9 k/uL (3.8-10.6)
[2018-11-13] MEDS: HEPARIN SODIUM,PORCINE 5,000 UNIT/ML 1 ML VIAL SQ SCH ×2 (08:32→20:21)
[2018-11-13] MEDS: ATENOLOL 25 MG TAB PO SCH (08:32)
[2018-11-13] MEDS: ALVIMOPAN 12 MG CAPSULE PO SCH ×2 (08:32→20:21)
[2018-11-13 09:17] LABS: Potassium 3.7 mmol/L (3.5-5.1)
[2018-11-13] MEDS ORDERED: INSULIN PUMP BASAL RATES 1 EACH MISC MISCELLANE PRN (10:47)
[2018-11-13] MEDS ORDERED: INSPUCOR MISCELLANE PRN (10:47)
[2018-11-13] MEDS ORDERED: INSULIN PUMP TARGET GLUCOSE 1 EACH MISC MISCELLANE PRN (10:47)
[2018-11-13] MEDS ORDERED: INSULIN ASPART (NovoLOG) 100 UNIT/ML VIAL SQ PRN (10:47)
[2018-11-13] MEDS ORDERED: INSULIN PUMP ACTIVE INSULIN 1 EACH MISC MISCELLANE PRN (10:47)
[2018-11-13 12:01] LABS: Glucose,Whole Blood 114 mg/dL (75-99)
--- NOTE | 2018-11-13 12:49 | PN ---
PROGRESS NOTE Patient is seen for followup for chronic kidney disease and acute kidney injury. Her renal function has been improving. Serum creatinine is down to 1.43 from 2.15. She is maintained on IV fluids. Patient is maintained on liquid diet. She is trying to increase her oral intake. PHYSICAL EXAMINATION: On examination this morning, blood pressure 150/76, heart rate 73 per minute. She is afebrile. EXAMINATION OF THE HEART: S1, S2. EXAMINATION OF THE LUNGS: Bilateral breath sounds are heard. ABDOMEN: Soft. Tenderness noted. Examination of lower extremities shows trace edema bilaterally. NURSE TRANSPLANT exam grossly intact. LABS: Labs show hemoglobin 10.6, sodium 136, potassium 3.7, creatinine 1.43. ASSESSMENT: 1. Acute kidney injury, prerenal, currently improving. If she is able to maintain good oral intake, we can decrease the IV fluids. I believe her renal function is at baseline. 2. Chronic kidney disease stage 3, being followed by [facility] out of [place]. 3. Bowel obstruction and sigmoid diverticulitis, status post partial sigmoid resection on 11/10/2018. 4. Hypertension with chronic kidney disease, controlled. 5. Hypokalemia, status post replacement. PLAN: Continue to avoid nephrotoxic agents. Decrease IV fluids if the patient is able to maintain good oral intake. Agree with discontinuation of Jackson catheter. MMODL / IJN: [id number] /
[2018-11-13] MEDS: INSULIN PUMP MEAL BOLUS 1 UNIT MISC MISCELLANE SCH ×3 (13:18→20:31)
--- NOTE | 2018-11-13 14:23 | P.PN ---
Subjective Progress Note Date: 11/13/18 Principal diagnosis: Post low anterior resection Patient doing better today. She did pass flatus. Nausea improved. Appetite diminished. White blood cell count 7.9. Objective - Vital Signs Vital signs: Vital Signs Temp 98.6 F 11/13/18 07:00 Pulse 73 11/13/18 07:00 Resp 16 11/13/18 07:00 BP 150/76 11/13/18 07:00 Pulse Ox 96 11/13/18 07:00 Intake & Output 11/12/18 11/13/18 11/13/18 18:59 06:59 18:59 Intake Total 192.533 Output Total 800 450 Balance -607.467 -450 Intake: Intake, IV Titration 192.533 Amount Ropivacaine 250 mg 192.533 Hydromorphone (Pf) 5 mg In Sodium Chloride 0.9% 200 ml @ Per Protocol EPIDURAL .Q0M PRN Rx#: [id number] Output: Urine 800 450 Other: Voiding Method Indwelling Catheter Indwelling Catheter Indwelling Catheter - Exam Abdomen: Soft, nondistended, dressings clean and dry - Labs CBC & Chem 7: 11/13/18 07:29 11/13/18 07:29 Labs: Abnormal Lab Results - Last 24 Hours (Table) 11/12/18 11/12/18 11/13/18 Range/Units 16:50 20:07 02:03 RBC (3.80-5.40) m/uL Hgb (11.4-16.0) gm/dL Hct (34.0-46.0) % Lymphocytes # (1.0-4.8) k/uL Sodium (137-145) mmol/L Creatinine (0.52-1.04) mg/dL POC Glucose (mg/dL) 131 H 163 H 74 L (75-99) mg/dL Calcium (8.4-10.2) mg/dL 11/13/18 11/13/18 11/13/18 Range/Units 07:29 07:29 11:50 RBC 3.46 L (3.80-5.40) m/uL Hgb 10.6 L (11.4-16.0) gm/dL Hct 31.5 L (34.0-46.0) % Lymphocytes # 0.7 L (1.0-4.8) k/uL Sodium 136 L (137-145) mmol/L Creatinine 1.43 H (0.52-1.04) mg/dL POC Glucose (mg/dL) 114 H (75-99) mg/dL Calcium 8.0 L (8.4-10.2) mg/dL Assessment and Plan (1) Diverticulitis of sigmoid colon Narrative/Plan: Increase activity. Advance to full liquid diet. Ambulate. Add Toradol for pain control. Current Visit: Yes Status: Acute Code(s): K57.32 - DVTRCLI OF LG INT W/O PERFORATION OR ABSCESS W/O BLEEDING SNOMED Code(s): 228634727
[2018-11-13 14:31] VITALS: BMI 35.3
[2018-11-13 16:56] LABS: Glucose,Whole Blood 154 mg/dL (75-99)
--- NOTE | 2018-11-13 17:07 | PN ---
PROGRESS NOTE DATE OF SERVICE: 11/13/2018 This 78-year-old woman who was admitted with large bowel obstruction, sigmoid stricture, had surgery. The patient is being closely monitored. Surgery is following the patient closely. The diet has been advanced to full liquids at this time. No chest pain. No palpitations. No fever. On exam, alert and oriented x3. Pulse is 73, blood pressure 150/76, respiration 16, temperature 98.6, pulse ox 96% on room air. HEENT: Conjunctivae normal. NECK: No jugular venous distention. CARDIOVASCULAR SYSTEM: S1, S2 muffled. RESPIRATORY SYSTEM: Breath sounds diminished at the bases. No rhonchi. No crackles. ABDOMEN: Soft. Status post surgery. LEGS: No edema. No swelling. NERVOUS SYSTEM: No focal deficit. LABS: WBC 7.9, hemoglobin 10.6. Creatinine is 1.43, which is actually improving at this time. ASSESSMENT: 1. Large bowel obstruction with sigmoid stricture, status post low anterior resection and colonoscopy. 2. Diabetes mellitus, type 2, on insulin pump. 3. Chronic renal failure, possibly diabetic nephropathy, stage III. 4. Hypokalemia. 5. Hyponatremia. 6. Hypertension. 7. Hyperlipidemia. 8. History of degenerative joint disease. 9. History of hypothyroidism. 10.History of insulin pump. 11.History of macular degeneration. 12.History of cholecystectomy. 13.Remote history of nicotine dependence. 14.Obesity with body mass index of 35.3. 15.FULL CODE. RECOMMENDATIONS AND DISCUSSION: I recommend to continue current medications, continue with the monitoring, symptomatic treatment. Otherwise at this time I recommend continuing with insulin pump. Monitor blood sugars closely. Follow closely with Surgery. Advance diet per Surgery. Further recommendations to follow. MMODL / IJN: [id number] /
[2018-11-13] MEDS: KETOROLAC 30 MG/ML 1 ML VIAL IVP SCH ×2 (18:28→23:27)
[2018-11-13] MEDS: ONDANSETRON 4 MG/2 ML VIAL IVP PRN (18:38)
[2018-11-13] MEDS: LORATADINE 10 MG TAB PO SCH (20:21)
[2018-11-13 20:23] LABS: Glucose,Whole Blood 156 mg/dL (75-99)
[2018-11-14] MEDS: CLINDAMYCIN 600 MG in DEXTROSE 5% IN WATER 50 ML IVPB SCH ×6 (01:16→21:11)
[2018-11-14] MEDS: LACTATED RINGERS 1,000 ML IV SCH (01:19)
[2018-11-14 02:00] LABS: Glucose,Whole Blood 86 mg/dL (75-99)
[2018-11-14] MEDS: KETOROLAC 30 MG/ML 1 ML VIAL IVP SCH ×2 (05:08→13:37)
[2018-11-14] MEDS: LEVOTHYROXINE 100 MCG TAB PO SCH (05:08)
[2018-11-14] MEDS: metroNIDAZOLE-NS PMX 500 MG in SALINE 1 100ML.BAG IVPB SCH ×4 (05:09→23:51)
[2018-11-14] MEDS: ONDANSETRON 4 MG/2 ML VIAL IVP PRN (05:11)
[2018-11-14 07:04] LABS: Glucose,Whole Blood 94 mg/dL (75-99)
[2018-11-14] MEDS: ATENOLOL 25 MG TAB PO SCH (08:53)
[2018-11-14] MEDS: ALVIMOPAN 12 MG CAPSULE PO SCH ×2 (08:53→21:09)
[2018-11-14] MEDS: HEPARIN SODIUM,PORCINE 5,000 UNIT/ML 1 ML VIAL SQ SCH ×2 (08:53→21:09)
[2018-11-14] MEDS: INSULIN PUMP MEAL BOLUS 1 UNIT MISC MISCELLANE SCH ×4 (09:11→21:10)
[2018-11-14 11:52] LABS: Glucose,Whole Blood 178 mg/dL (75-99)
[2018-11-14 17:11] LABS: Glucose,Whole Blood 152 mg/dL (75-99)
--- NOTE | 2018-11-14 17:21 | PN ---
PROGRESS NOTE DATE OF SERVICE: 11/14/2018. This 78-year-old woman who was admitted with large bowel obstruction with sigmoid stricture, is being closely monitored. No chest pain. No palpitations. No fever. PHYSICAL EXAM: Alert and oriented x3. Pulse 61. Blood pressure 134/73, respirations 16, temp 98.4, pulse ox 98% on room air. HEENT: Conjunctivae normal. Oral mucosa moist. NECK is no jugular venous distention. No carotid bruit. No lymph node enlargement. Cardiovascular systems: S1, S2 muffled. RESPIRATION: Breath sounds diminished in the bases. No rhonchi. No crackles. ABDOMEN: Soft, nontender. No mass palpable. Status post surgery. LEGS are no edema. No swelling. CENTRAL NERVOUS SYSTEM: No focal deficits. LABS: Glucose 94, 178, otherwise WBC 7.2, hemoglobin 10.2, sodium is 136, creatinine is 1.43. ASSESSMENT: 1. Large bowel obstruction, sigmoid stricture status post low anterior resection and colonoscopy. 2. Diabetes mellitus type 2 on insulin pump. 3. Chronic renal failure, diabetic nephropathy stage III. 4. Hypokalemia. 5. Hyponatremia. 6. Hypertension. 7. Hyperlipidemia. 8. History of degenerative joint disease. 9. History of hypothyroidism. 10.History of insulin pump. 11.History of macular degeneration. 12.History of cholecystectomy. 13.Remote history of nicotine dependence. 14.Obesity with body mass index of 35.3. 15.FULL CODE. RECOMMENDATIONS AND DISCUSSION: Continue to continue current medication, continue with monitoring and symptomatic treatment. Otherwise at this time, continue the incentive spirometry. Patient is having some minimal cough at this time. Creatinine is stable. Closely monitor along with surgery. Further recommendations to follow. Continue with DVT prophylaxis. MMODL / IJN: [id number] /
[2018-11-14] MEDS ORDERED: HYDROcodone/APAP 5-325MG 1 EACH TAB PO PRN (17:51)
--- NOTE | 2018-11-14 17:53 | P.PN ---
Subjective Progress Note Date: 11/14/18 Principal diagnosis: Post low anterior resection Patient doing well today. She did have 2 uncontrolled episodes of diarrhea. Pain is controlled. She is ambulating. Vital signs have been stable. Tolerating full liquids. Objective - Vital Signs Vital signs: Vital Signs Temp 98.0 F 11/14/18 15:00 Pulse 63 11/14/18 15:00 Resp 16 11/14/18 15:00 BP 147/73 11/14/18 15:00 Pulse Ox 96 11/14/18 15:00 Intake & Output 11/13/18 11/14/18 11/14/18 18:59 06:59 18:59 Weight 100.698 kg Other: Voiding Method Toilet Toilet # Voids 2 - Exam Abdomen: Soft, nondistended, incision with mild tenderness - Labs CBC & Chem 7: 11/13/18 07:29 11/13/18 07:29 Labs: Abnormal Lab Results - Last 24 Hours (Table) 11/13/18 11/14/18 11/14/18 Range/Units 20:13 11:41 17:00 POC Glucose (mg/dL) 156 H 178 H 152 H (75-99) mg/dL Assessment and Plan (1) Diverticulitis of sigmoid colon Narrative/Plan: Will advance diet to low fiber. Ambulate. Add [place] for pain control. Probable discharge tomorrow. Current Visit: Yes Status: Acute Code(s): K57.32 - DVTRCLI OF LG INT W/O PERFORATION OR ABSCESS W/O BLEEDING SNOMED Code(s): 910188031
[2018-11-14] MEDS: SODIUM CHLORIDE 0.9% 1,000 ML IV SCH (18:58)
[2018-11-14 20:25] LABS: Glucose,Whole Blood 163 mg/dL (75-99)
[2018-11-14] MEDS: LORATADINE 10 MG TAB PO SCH (21:09)
[2018-11-15] MEDS: CLINDAMYCIN 600 MG in DEXTROSE 5% IN WATER 50 ML IVPB SCH ×4 (00:58→11:39)
[2018-11-15] MEDS: LACTATED RINGERS 1,000 ML IV SCH (01:28)
[2018-11-15 02:38] LABS: Glucose,Whole Blood 88 mg/dL (75-99)
[2018-11-15] MEDS: LEVOTHYROXINE 100 MCG TAB PO SCH (05:45)
[2018-11-15] MEDS: metroNIDAZOLE-NS PMX 500 MG in SALINE 1 100ML.BAG IVPB SCH (05:45)
[2018-11-15] MEDS: SODIUM CHLORIDE 0.9% 1,000 ML IV SCH (05:48)
[2018-11-15 06:58] LABS: Glucose,Whole Blood 88 mg/dL (75-99)
[2018-11-15] MEDS ORDERED: LOSARTAN 25 MG TAB PO SCH (09:30)
[2018-11-15] MEDS: INSULIN PUMP MEAL BOLUS 1 UNIT MISC MISCELLANE SCH (09:51)
[2018-11-15] MEDS: ALVIMOPAN 12 MG CAPSULE PO SCH (09:52)
[2018-11-15] MEDS: HEPARIN SODIUM,PORCINE 5,000 UNIT/ML 1 ML VIAL SQ SCH (09:52)
[2018-11-15] MEDS: ATENOLOL 25 MG TAB PO SCH (10:45)
[2018-11-15 11:41] LABS: Glucose,Whole Blood 143 mg/dL (75-99)
[2018-11-15 11:45] VITALS: BP 134/74; PULSE 71; RESP 17; TEMP 98.1
--- NOTE | 2018-11-15 12:29 | P.DS ---
Providers Date of admission: 11/09/18 12:49 Expected date of discharge: 11/15/18 Attending physician: Arina Alonzo Consults: 11/09/18 14:14 Consult Physician Urgent Consulting Provider: Carol Matta Consult Reason/Comments: Acute on chronc renal injury Do you want consulting provider notified?: Yes 11/09/18 18:48 Consult Physician Routine Consulting Provider: Milagro Nieves Consult Reason/Comments: Medical management Do you want consulting provider notified?: Yes, Notify in am Primary care physician: Hans Sanchez - Discharge Diagnosis(es) (1) Large bowel obstruction Current Visit: Yes Status: Acute (2) Diverticulitis of sigmoid colon Current Visit: Yes Status: Acute (3) Diabetes type 1, controlled Current Visit: Yes Status: Acute (4) Diabetic nephropathy associated with type 1 diabetes mellitus Current Visit: Yes Status: Acute (5) Stage 4 chronic kidney disease due to diabetes mellitus Current Visit: Yes Status: Acute (6) Morbid obesity due to excess calories Current Visit: Yes Status: Acute (7) Hypertensive heart disease Current Visit: Yes Status: Acute (8) BMI 35.0-35.9,adult Current Visit: Yes Status: Acute (9) Hypokalemia Current Visit: Yes Status: Acute Hospital Course: She is doing very well. She had multiple bowel movements and passing flatus. Her kidneys has improved and has been the best since admission. She is tolerating diet. MS 1+ bilateral pitting edema. Patient Condition at Discharge: Stable Plan - Discharge Summary Discharge Rx Participant: No New Discharge Prescriptions: New Losartan [Cozaar] 25 mg PO DAILY #30 tab Discontinued Atenolol [Tenormin] 25 mg PO DAILY Losartan-Hctz 50-12.5 mg [Hyzaar 50-12.5] 1 tab PO DAILY No Action Levothyroxine Sodium [Synthroid] 100 mcg PO DAILY INSULIN ASPART (NovoLOG) [NovoLOG] 0.1 unit SQ CONTINUOUS Raloxifene [Evista] 60 mg PO DAILY Multivitamins, Thera [Multivitamin] 1 tab PO DAILY Cholecalciferol [Vitamin D3 (25 Mcg = 1000 Iu)] 3,000 unit PO DAILY Vits A,C,E/Lutein/Minerals [Ocuvite with Lutein Tablet] 1 tab PO DAILY Pravastatin Sodium [Pravachol] 20 mg PO HS Cbd Oil 1 drop PO HS Calcium Carbonate/Vitamin D3 [Calcium 600-Vit D3 400 Tablet] 1 tab PO DAILY Loratadine [Claritin] 10 mg PO HS Discharge Medication List INSULIN ASPART (NovoLOG) [NovoLOG] 0.1 unit SQ CONTINUOUS 05/27/14 [History] Levothyroxine Sodium [Synthroid] 100 mcg PO DAILY 05/27/14 [History] Multivitamins, Thera [Multivitamin] 1 tab PO DAILY 05/27/14 [History] Raloxifene [Evista] 60 mg PO DAILY 05/27/14 [History] Calcium Carbonate/Vitamin D3 [Calcium 600-Vit D3 400 Tablet] 1 tab PO DAILY 11/02/18 [History] Cbd Oil 1 drop PO HS 11/02/18 [History] Cholecalciferol [Vitamin D3 (25 Mcg = 1000 Iu)] 3,000 unit PO DAILY 11/02/18 [History] Loratadine [Claritin] 10 mg PO HS 11/02/18 [History] Pravastatin Sodium [Pravachol] 20 mg PO HS 11/02/18 [History] Vits A,C,E/Lutein/Minerals [Ocuvite with Lutein Tablet] 1 tab PO DAILY 11/02/18 [History] Losartan [Cozaar] 25 mg PO DAILY #30 tab 11/15/18 [Rx]
--- NOTE | 2018-11-15 13:26 | P.PN ---
Subjective 78-year-old Pleasant Woman Admitted for diverticulitis underwent the sigmoid resection and anastomosis has will be to of diarrhea. Beyond that patient denied any other symptoms. Patient is clinically doing well Constitutional: Denied any fatigue denied any fever. Cardio vascular: denied any chest pain, palpitations Gastrointestinal denied any nausea vomiting Pulmonary: Denied any shortness of breath cough Neurologic denied any new focal deficits All inpatient medications were reviewed and appropriate changes in these medications as dictated in the interval history and assessment and plan. Objective - Vital Signs Vital signs: Vital Signs Temp 98.1 F 11/15/18 07:00 Pulse 71 11/15/18 07:00 Resp 17 11/15/18 07:00 BP 134/74 11/15/18 07:00 Pulse Ox 96 11/15/18 07:00 Intake & Output 11/14/18 11/15/18 11/15/18 18:59 06:59 18:59 Other: Voiding Method Toilet # Bowel Movements 1 - Exam PHYSICAL EXAMINATION: GENERAL: The patient is alert and oriented x3, not in any acute distress. Well d eveloped, well nourished. HEENT: Pupils are round and equally reacting to light. EOMI. No scleral icterus. No conjunctival pallor. Normocephalic, atraumatic. No pharyngeal erythema. No thyromegaly. CARDIOVASCULAR: S1 and S2 present. No murmurs, rubs, or gallops. PULMONARY: Chest is clear to auscultation, no wheezing or crackles. ABDOMEN: Soft, nontender, nondistended, normoactive bowel sounds. No palpable organomegaly. MUSCULOSKELETAL: No joint swelling or deformity. EXTREMITIES: No cyanosis, clubbing, or pedal edema. NEUROLOGICAL: Gross neurological examination did not reveal any focal deficits. SKIN: No rashes. - Labs CBC & Chem 7: 11/13/18 07:29 11/13/18 07:29 Labs: Abnormal Lab Results - Last 24 Hours (Table) 11/14/18 11/14/18 11/15/18 Range/Units 17:00 20:14 11:40 POC Glucose (mg/dL) 152 H 163 H 143 H (75-99) mg/dL Assessment and Plan Plan: -Sigmoid diverticulitis, with the sigmoid stricture: Status post resection and end-to-end anastomosis. -Type 2 diabetes mellitus on insulin pump -Chronic kidney disease stage III secondary to diabetic nephropathy -Hypertension: Regarding hypertension and blood pressure was low atenolol will be discontinued heart rate is in 60s asked her to monitor the heart rate at home patient will be discharged on losartan because of her diabetic nephropathy. Patient was also on losartan hydrocortisone combination at home which is being discontinued and being discharged on a low-dose of losartan which can be increased her blood pressure can tolerate. -Hyperlipidemia -Hypothyroidism Patient can be discharged from medical perspective
== END 2018-11-15 14:58 | disposition home or self-care (01) | DRG 329 ==
LOC: ORWHC2ENDO 10:56 → 4SSUR 12:49
PROVIDERS: ADMIT Surgery Plastic and Reconstructive Surgery; ATTEND Surgery Plastic and Reconstructive Surgery
PROC: 0DJD8ZZ Inspection of Lower Intestinal Tract, Via Natural or Artificial Opening Endoscopic (ICD-10-PCS; 2018-11-09)
PROC: 8E0W0CZ Robotic Assisted Procedure of Trunk Region, Open Approach (ICD-10-PCS; 2018-11-10)
PROC: 0DBN0ZZ Excision of Sigmoid Colon, Open Approach (ICD-10-PCS; principal; 2018-11-10 10:40)
DX: K57.32 Diverticulitis of large intestine without perforation or abscess without bleeding (principal); N17.0 Acute kidney failure with tubular necrosis; E87.1 Hypo-osmolality and hyponatremia; K56.699 Other intestinal obstruction unspecified as to partial versus complete obstruction; N18.4 Chronic kidney disease, stage 4 (severe); E03.9 Hypothyroidism, unspecified; Z79.890 Hormone replacement therapy; Z79.899 Other long term (current) drug therapy; E10.22 Type 1 diabetes mellitus with diabetic chronic kidney disease; E66.01 Morbid (severe) obesity due to excess calories; E78.5 Hyperlipidemia, unspecified; E86.9 Volume depletion, unspecified; E87.6 Hypokalemia; H35.30 Unspecified macular degeneration; I13.10 Hypertensive heart and chronic kidney disease without heart failure, with stage 1 through stage 4 chronic kidney disease, or unspecified chronic kidney disease; K64.8 Other hemorrhoids; M81.0 Age-related osteoporosis without current pathological fracture; Z68.35 Body mass index [BMI] 35.0-35.9, adult; Z79.4 Long term (current) use of insulin; Z83.3 Family history of diabetes mellitus; Z87.891 Personal history of nicotine dependence; Z90.49 Acquired absence of other specified parts of digestive tract; Z96.41 Presence of insulin pump (external) (internal); Z88.0 Allergy status to penicillin; Z88.2 Allergy status to sulfonamides; Z91.040 Latex allergy status; T50.2X5A Adverse effect of carbonic-anhydrase inhibitors, benzothiadiazides and other diuretics, initial encounter; R19.7 Diarrhea, unspecified; L30.9 Dermatitis, unspecified; Z98.42 Cataract extraction status, left eye; Z98.41 Cataract extraction status, right eye; Z96.1 Presence of intraocular lens; M19.90 Unspecified osteoarthritis, unspecified site
CPT/HCPCS: 45330; 80048; 80053; 81001; 83735; 84100; 85025; 88307